=== PATIENT | female | born 1950 | race Caucasian/White ===

== ENCOUNTER 2019-04-01 09:11 | Day surgery (SDC) | payer BC ==
[~2019-04-01 09:11] MED LIST: PROPOFOL 500 MG/50 ML EMU IV ONE
[2019-04-01 11:25] VITALS: BP 143/79; PULSE 68; RESP 16; TEMP 97.6; O2SAT 100
== END 2019-04-01 11:51 | disposition home or self-care (01) | DRG 951 ==
LOC: SURG 09:11
PROVIDERS: ATTEND Surgery
DX: Z12.11 Encounter for screening for malignant neoplasm of colon (principal); Z86.010 Personal history of colon polyps; D12.2 Benign neoplasm of ascending colon; D12.3 Benign neoplasm of transverse colon
CPT/HCPCS: J2704